=== PATIENT | male | born 1975 | race Caucasian/White ===

== ENCOUNTER → 2023-03-29 11:00 | Outpatient (CLI) | payer BC, SELFPAY ==
--- NOTE | 2023-03-29 11:04 | DI.RAD.S_ITS ---
PROCEDURE: XR SHOULDER LT MIN 2V INDICATIONS: SHOULDER PAIN TECHNIQUE: 3 views of the shoulder were acquired. COMPARISON: None. FINDINGS: Bones: No fractures or dislocations. Moderate acromioclavicular joint osteoarthritic changes are seen. No suspicious bony lesions. Visualized ribs appear intact. Soft tissues: No suspicious soft tissue calcifications. IMPRESSION: Moderate acromioclavicular joint osteoarthritis. No left shoulder fracture or dislocation. No gross soft tissue abnormalities. Dictated by: Jose Antonio De Dios M.D. on 03/29/2023 at 13:23 Approved by: Jose Antonio De Dios M.D. on 03/29/2023 at 13:23
== END ==
LOC: RAD 11:03
PROVIDERS: PCP Internal Medicine; Referring Provider Internal Medicine; Visit Provider Internal Medicine
DX: M19.012 Primary osteoarthritis, left shoulder (principal); M25.512 Pain in left shoulder
CPT/HCPCS: 73030